=== PATIENT | female | born 2000 | race American Indian/Alaskan Native ===

== ENCOUNTER 2020-09-28 07:32 | Emergency (ER) | payer OTHER ==
[2020-09-28 07:50] VITALS: BP 117/70
[2020-09-28] MEDS ORDERED: KETOROLAC 30 MG/1 ML INJ IM ONE (07:54)
[2020-09-28] MEDS ORDERED: CYCLOBENZAPRINE 10 MG TAB PO ONE (07:55)
--- NOTE | 2020-09-28 08:07 | Emergency Department Report ---
ED Neck Pain HPI Chief Complaint: Neck Pain/Injury Stated Complaint: She woke up with right lateral neck pain Time Seen by Provider: 09/28/20 07:50 Duration: Today Neck Pain Location: Lateral Neck Severity: moderate Symptoms: Yes Pain with Movement, No Radiation to Left Upper Ext, No Radiation to Right Upper Ext, No Numbness, No Weakness, No Previous History ED Review of Systems ROS: Stated complaint: NECK/SHOULDER PAIN Other details as noted in HPI Comment: All other systems reviewed and negative Constitutional: no symptoms reported Eyes: denies: eye pain, eye discharge Respiratory: no symptoms reported Endocrine: no symptoms reported Gastrointestinal: denies: as per HPI, abdominal pain Musculoskeletal: other (Right lateral neck pain). denies: back pain Neurological: denies: headache, weakness, numbness, paresthesias, confusion, abnormal gait Psychiatric: denies: anxiety, depression ED Past Medical Hx - Past Medical History Previous Medical History?: No - Surgical History Past Surgical History?: No - Medications Home Medications: Home Medications Medication Instructions Recorded Confirmed Last Taken Type Ibuprofen [Motrin] 800 mg PO Q8HR PRN #21 tablet 09/28/20 Unknown Rx methOCARBAMOL [Robaxin TAB] 750 mg PO BID PRN #20 tab 09/28/20 Unknown Rx Neck Pain Exam - Exam General: Vital signs noted. No distress. Alert and acting appropriately. Well-appearing 20-year-old female HEENT: No Facial Pain, No Scalp Tenderness, No Contusion, No Abrasion, No Lacer ation Neck Pain: Yes Right Paraspinal Tenderness, Yes Right Trapezius Tenderness, Yes Pain with Rotation Right, No Midline Tenderness, No Left Paraspinal Tenderness, No Left Trapezius Tenderness, No Pain with Rotation Left, No Pain with Extension, No Pain with Flexion, No pain with R Lateral Flexion, No Pain with L Lateral Flexion Chest: Yes Clear Lung Sounds, No Pain with Respirations Heart: Yes Regular, No Murmur Back: No Thoracic Tenderness, No Lumbar Tenderness Neuro: No Numbness, No Weakness, No Normal Reflexes, No Radicular Deficits ED Course Vital Signs 09/28/20 07:48 Temperature 98.1 F Pulse Rate 75 Respiratory 18 Rate Blood Pressure 117/70 [Right] O2 Sat by Pulse 98 Oximetry ED Medical Decision Making - Medical Decision Making 20-year-old female with no past medical history. She woke up this morning with right lateral neck pain. Patient denies any falls or injuries she has no fever no cough no other symptoms. On examination patient does not have any vertebral point tenderness. right paraspinal tenderness and right trapezius tenderness she has full range of motion of her extremities distal pulses intact most likely acute torticollis - Differential Diagnosis Neck strain acute torticollis Critical Care Time: No Critical care attestation.: If time is entered above; I have spent that time in minutes in the direct care of this critically ill patient, excluding procedure time. ED Disposition Clinical Impression: Acute torticollis Disposition: TO HOME OR SELFCARE Is pt being admited?: No Does the pt Need Aspirin: No Condition: Stable Instructions: Acute Torticollis, Adult Additional Instructions: Take medication as prescribed follow-up with your primary care doctor in 3 to 5 days if no improvement. Or with the physician referred you to. You may use warm compress to the right side of your neck. Prescriptions: Ibuprofen [Motrin] 800 mg PO Q8HR PRN #21 tablet PRN Reason: Pain, Moderate (4-6) methOCARBAMOL [Robaxin TAB] 750 mg PO BID PRN #20 tab PRN Reason: Spasms Referrals: CYNDI MENDENHALL MD [Staff Physician] - 3-5 Days Time of Disposition: 08:06
== END 2020-09-28 08:54 | disposition home or self-care (01) ==
LOC: ED 07:32
DX: M43.6 Torticollis (principal); Z79.1 Long term (current) use of non-steroidal anti-inflammatories (NSAID); Z79.899 Other long term (current) drug therapy
CPT/HCPCS: 96372; 99282; J1885